=== PATIENT | female | born 1975 | race Caucasian/White ===

== ENCOUNTER 2017-08-23 11:13 | Emergency (ER) | payer MEDICAID ==
[~2017-08-23] VITALS: Ht 154.9 cm; Wt 111.1 kg
[2017-08-23 11:21] VITALS: BP_SYST 164
[2017-08-23] MEDS ORDERED: NACL 0.9% 1,000 ML IV ONE (11:45)
[2017-08-23] MEDS ORDERED: METOCLOPRAMIDE HCL 10 MG/2 ML VIAL IVP ONE (11:45)
[2017-08-23 12:16] LABS: BILIRUBIN,URINE NEGATIVE (NEGATIVE); BLOOD, URINE NEGATIVE (NEGATIVE); CLARITY/URINE CLEAR (CLEAR); COLOR,URINE YELLOW (YELLOW); GLUCOSE,URINE NEGATIVE (NEGATIVE); KETONES,URINE NEGATIVE (NEGATIVE); LEUKOCYTE ESTERASE ,URINE NEGATIVE (NEGATIVE); NITRITE, URINE NEGATIVE (NEGATIVE); PROTEIN URINE NEGATIVE (NEGATIVE); UROBILINOGEN,URINE 0.2 (0.2-1.0)
[2017-08-23] MEDS ORDERED: METOCLOPRAMIDE HCL 10 MG/2 ML VIAL ONE (12:23)
[2017-08-23] MEDS ORDERED: KETOROLAC TROMETHAMINE 30 MG VIAL IVP ONE (12:45)
[2017-08-23] MEDS ORDERED: LORazepam 2 MG/ML VIAL (FOR ER USE) IVP ONE (12:45)
[2017-08-23] MEDS ORDERED: ONDANSETRON HCL 4 MG/2 ML VIAL IVP ONE (12:45)
[2017-08-23 12:50] LABS: BASOPHILS # (AUTO) 0.1 K/uL (0.0-0.2); BASOPHILS % (AUTO) 0.8 % (0.0-2.0); EOSINOPHILS # (AUTO) 0.5 K/uL (0.0-0.4); EOSINOPHILS % (AUTO) 5.2 % (0.0-4.0); HEMATOCRIT 41.1 % (36-48); HEMOGLOBIN 13.6 g/dL (12.0-16.0); LYMPHOCYTES # (AUTO) 1.9 K/uL (1.0-5.5); LYMPHOCYTES % (AUTO) 21.3 % (20.5-51.5); MEAN CORPUSCULAR HEMOGLOBIN 29 pg (27-31); MEAN CORPUSCULAR HGB CONC 33 % (32-36); MEAN CORPUSCULAR VOLUME 87 fL (79.0-98.0); MONOCYTES # (AUTO) 0.5 K/uL (0.0-1.0); MONOCYTES % (AUTO) 5.8 % (1.7-9.3); NEUTROPHILS % (AUTO) 66.9 % (40.0-70.0); PLATELET COUNT (AUTO) 449 K/uL (130-430); RED CELL DISTRIBUTION WIDTH 12.9 % (9.0-15.0)
[2017-08-23 13:03] LABS: CALCIUM 9.2 mg/dL (8.4-11.0); CREATININE 0.7 mg/dL (0.55-1.30); POTASSIUM 3.8 mmol/L (3.5-5.1)
[2017-08-23 13:09] LABS: ALBUMIN 3.5 g/dL (3.4-4.8); TOTAL BILIRUBIN 0.5 mg/dL (0.0-1.0)
[2017-08-23] MEDS ORDERED: HYDROcodone/ACETAMIN 5-325 MG TAB (NORCO/ VICODIN) PO ONE (13:45)
[2017-08-23 14:20] VITALS: BP_SYST 158
== END 2017-08-23 14:20 | disposition home or self-care (01) ==
LOC: SED 11:13
DX: G43.909 Migraine, unspecified, not intractable, without status migrainosus (principal)
CPT/HCPCS: 36415; 70450; 80053; 81003; 81025; 85025; 96361; 96374; 96375; 99285; J1885; J2060; J2405; J2765; J7030

== ENCOUNTER 2018-07-16 05:41 | Emergency (ER) | payer BC, MEDICAID ==
[~2018-07-16] VITALS: Ht 154.9 cm; Wt 108.9 kg
[2018-07-16 05:55] VITALS: BP_SYST 145
--- NOTE | 2018-07-16 06:00 | NUR ---
Pt placed to ER bed 6. Pt c/o lower abdominal pain since 439 this AM. Denies N/V/D, -dysuria, -vaginal discharge.
--- NOTE | 2018-07-16 06:25 | NUR ---
Dr. Fajardo at bedside.
--- NOTE | 2018-07-16 06:52 | NUR ---
Pt to X-ray via W/C.
--- NOTE | 2018-07-16 07:05 | NUR ---
Pt returns from X-ray. No needs verbalized at this time.
--- NOTE | 2018-07-16 07:11 | NUR ---
Pt report given to ALCIRA Cantu.
[2018-07-16 07:54] VITALS: BP_SYST 138
--- NOTE | 2018-07-16 07:56 | NUR ---
Patient given written and verbal discharge instructions and verbalizes understanding. ER MD discussed with patient the results and treatment provided. Patient in stable condition. ID arm band removed. Rx of Senokot given. Patient educated on pain management and to follow up with PMD. Pain Scale 2/10 tolerable for patient . Opportunity for questions provided and answered. Medication side effect fact sheet provided.
== END 2018-07-16 07:56 | disposition home or self-care (01) ==
LOC: SED 05:41
DX: R10.84 Generalized abdominal pain (principal)
CPT/HCPCS: 74021; 81025; 99283

== ENCOUNTER 2018-11-22 21:46 | Emergency (ER) | payer BC ==
[~2018-11-22] VITALS: Ht 154.9 cm; Wt 111.1 kg
[2018-11-22 22:43] VITALS: BP_SYST 132
--- NOTE | 2018-11-22 22:49 | NUR ---
Patient triaged and placed in waiting room. VSS and patient appears in no acute distress at this time. Accompanied by fiance, awaiting available bed, and MD notified of need for MSE.
--- NOTE | 2018-11-23 00:09 | NUR ---
Patient to ER bed 6 to gown for evaluation. Side rails up.
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
--- NOTE | 2018-11-23 00:39 | NUR ---
ER Dr. Patrick at bedside examining patient.
[2018-11-23] MEDS ORDERED: LORazepam 1 MG TABLET PO ONE (00:45)
[2018-11-23] MEDS ORDERED: ACETAMINOPHEN 500 MG TABLET PO ONE (01:00)
[2018-11-23] MEDS ORDERED: NACL 0.9% 1,000 ML IV ONE (01:00)
--- NOTE | 2018-11-23 01:33 | NUR ---
Pt resting comfortably in hospital bed. No acute distress, will continue to monitor.
[2018-11-23] MEDS ORDERED: TEMAZEPAM 15 MG CAPSULE PO ONE (01:45)
[2018-11-23] MEDS ORDERED: TEMAZEPAM 15 MG CAPSULE ONE (01:54)
[2018-11-23 02:42] VITALS: BP_SYST 130
--- NOTE | 2018-11-23 02:42 | NUR ---
Patient given written and verbal discharge instructions and verbalizes understanding. ER MD discussed with patient the results and treatment provided. Patient in stable condition. ID arm band removed. Rx of Ativan given. Patient educated on pain management and to follow up with PMD. Pain Scale 0. Opportunity for questions provided and answered. Medication side effect fact sheet provided.
== END 2018-11-23 02:42 | disposition home or self-care (01) ==
LOC: SED 21:46
DX: F41.9 Anxiety disorder, unspecified (principal); R03.0 Elevated blood-pressure reading, without diagnosis of hypertension
CPT/HCPCS: 99283; 99284

== ENCOUNTER 2021-02-12 04:41 | Emergency (ER) | payer SELFPAY ==
[~2021-02-12] VITALS: Ht 162.6 cm; Wt 111.1 kg
[2021-02-12 05:05] VITALS: BP_SYST 175
[2021-02-12 07:28] LABS: BASOPHILS # (AUTO) 0.1 K/uL (0.0-0.2); BASOPHILS % (AUTO) 0.8 % (0.0-2.0); EOSINOPHILS # (AUTO) 0.1 K/uL (0.0-0.4); EOSINOPHILS % (AUTO) 1.5 % (0.0-4.0); HEMATOCRIT 39.4 % (36-48); HEMOGLOBIN 13.7 g/dL (12.0-16.0); LYMPHOCYTES # (AUTO) 1.4 K/uL (1.0-5.5); LYMPHOCYTES % (AUTO) 16.8 % (20.5-51.5); MEAN CORPUSCULAR HEMOGLOBIN 31 pg (27-31); MEAN CORPUSCULAR HGB CONC 35 % (32-36); MEAN CORPUSCULAR VOLUME 88 fL (79.0-98.0); MONOCYTES # (AUTO) 0.6 K/uL (0.0-1.0); MONOCYTES % (AUTO) 7.4 % (1.7-9.3); NEUTROPHILS # (AUTO) 6.1 K/uL (1.8-7.7); NEUTROPHILS % (AUTO) 73.5 % (40.0-70.0); PLATELET COUNT (AUTO) 365 K/uL (130-430); RED BLOOD CELL COUNT(AUTO) 4.47 MIL/uL (4.2-6.2); RED CELL DISTRIBUTION WIDTH 14.2 % (9.0-15.0); WHITE BLOOD COUNT (AUTO) 8.3 K/uL (4.8-10.8)
[2021-02-12 07:50] LABS: ALBUMIN 3.6 g/dL (3.4-4.8); CREATININE 0.93 mg/dL (0.55-1.30); POTASSIUM 4.1 mmol/L (3.5-5.1); TOTAL BILIRUBIN 0.2 mg/dL (0.0-1.0)
[2021-02-12] MEDS ORDERED: HYDR-3917 PO (08:04)
[2021-02-12] MEDS ORDERED: PRED20TA PO (08:04)
[2021-02-12] MEDS ORDERED: IBUP-1969 PO (08:04)
[2021-02-12] MEDS ORDERED: ZIT250 PO (08:04)
[2021-02-12 08:10] LABS: CALCIUM 8.8 mg/dL (8.4-11.0)
[2021-02-12 08:14] VITALS: BP_SYST 152
[2021-02-12 08:25] LABS: C-REACTIVE PROTEIN QUANT 1.6 mg/dL (0-0.5)
[2021-02-12 08:27] LABS: ERYTHROCYTE SEDIMENTATION RATE 14 MM/HR (0-20)
== END 2021-02-12 08:14 | disposition home or self-care (01) ==
LOC: SED 04:41
DX: J04.0 Acute laryngitis (principal); M25.512 Pain in left shoulder; R94.31 Abnormal electrocardiogram [ECG] [EKG]
CPT/HCPCS: 36415; 70360-TC; 71045; 80053; 84484; 85025; 85651-TC; 86140; 93005; 99285

== ENCOUNTER 2022-05-21 06:09 | Inpatient (IN) | payer BC, OTHER ==
[~2022-05-21] VITALS: Ht 162.6 cm; Wt 111.1 kg
[~2022-05-21 06:09] MED LIST: HYDR-3917 PO; IBUP-1969 PO; PRED20TA PO; ZIT250 PO
[2022-05-21] MEDS ORDERED: ONDANSETRON HCL 4 MG/2 ML VIAL IVP ONE (06:45)
[2022-05-21] MEDS ORDERED: fentaNYL CITRATE/PF 100 MCG/2 ML AMP IVP ONE (06:45)
[2022-05-21] MEDS ORDERED: KETOROLAC TROMETHAMINE 30 MG VIAL IVP ONE (06:45)
[2022-05-21] MEDS ORDERED: NACL 0.9% 1,000 ML IV ONE (06:45)
[2022-05-21 07:12] LABS: BASOPHILS # (AUTO) 0.1 K/uL (0.0-0.2); BASOPHILS % (AUTO) 0.4 % (0.0-2.0); EOSINOPHILS # (AUTO) 0.1 K/uL (0.0-0.4); EOSINOPHILS % (AUTO) 0.4 % (0.0-4.0); HEMATOCRIT 40.2 % (36-48); HEMOGLOBIN 13.8 g/dL (12.0-16.0); LYMPHOCYTES # (AUTO) 1.7 K/uL (1.0-5.5); LYMPHOCYTES % (AUTO) 11.6 % (20.5-51.5); MEAN CORPUSCULAR HEMOGLOBIN 30 pg (27-31); MEAN CORPUSCULAR HGB CONC 34 % (32-36); MEAN CORPUSCULAR VOLUME 88 fL (79.0-98.0); MONOCYTES % (AUTO) 7.2 % (1.7-9.3); NEUTROPHILS # (AUTO) 11.5 K/uL (1.8-7.7); NEUTROPHILS % (AUTO) 80.4 % (40.0-70.0); PLATELET COUNT (AUTO) 315 K/uL (130-430); RED BLOOD CELL COUNT(AUTO) 4.56 MIL/uL (4.2-6.2); WHITE BLOOD COUNT (AUTO) 14.3 K/uL (4.8-10.8)
[2022-05-21 07:21] LABS: CREATININE 0.78 mg/dL (0.55-1.30)
[2022-05-21 07:29] LABS: BILIRUBIN,URINE NEGATIVE (NEGATIVE); BLOOD, URINE NEGATIVE (NEGATIVE); COLOR,URINE YELLOW (YELLOW); GLUCOSE,URINE NEGATIVE (NEGATIVE); KETONES,URINE TRACE (NEGATIVE); LEUKOCYTE ESTERASE ,URINE NEGATIVE (NEGATIVE); NITRITE, URINE NEGATIVE (NEGATIVE); PH,URINE 6.5 (5.0-8.0); PROTEIN URINE NEGATIVE (NEGATIVE); UROBILINOGEN,URINE 0.2 (0.2-1.0)
[2022-05-21 07:32] LABS: CLARITY/URINE SLIGHTLY HAZY (CLEAR)
[2022-05-21 07:35] LABS: ALBUMIN 3.4 g/dL (3.4-4.8); TOTAL BILIRUBIN 0.6 mg/dL (0.0-1.0)
[2022-05-21] MEDS ORDERED: cefTRIAXone 1 GM IVPB PREMIX 50 ML IV ONE (09:30)
[2022-05-21] MEDS ORDERED: metroNIDAZOLE 500 mg/NS 100 ML IV ONE (09:30)
[2022-05-21] MEDS ORDERED: POTASSIUM CHLORIDE 20 MEQ TAB.PRT.SR PO PRN (09:45)
[2022-05-21] MEDS ORDERED: LORazepam 2 MG/ML VIAL IVP PRN (09:45)
[2022-05-21] MEDS ORDERED: ZOLPIDEM TARTRATE 5 MG TABLET PO PRN (09:45)
[2022-05-21] MEDS ORDERED: MUPIROCIN 2% TOPICAL OINTMENT 22 GM NS PRN (09:45)
[2022-05-21] MEDS ORDERED: DOCUSATE SODIUM 100 MG CAPSULE PO PRN (09:45)
[2022-05-21] MEDS ORDERED: ACETAMINOPHEN 325 MG TABLET PO PRN (09:45)
[2022-05-21] MEDS ORDERED: MORPHINE 2 MG/ML INJ. SYRINGE IVP PRN (09:45)
[2022-05-21] MEDS ORDERED: MAGNESIUM SULFATE 50 ML IV PRN (09:45)
[2022-05-21] MEDS ORDERED: ONDANSETRON HCL 4 MG/2 ML VIAL IVP PRN (10:15)
[2022-05-21] MEDS ORDERED: MORPHINE 2 MG/ML INJ. SYRINGE ONE (10:16)
[2022-05-21] MEDS: ONDANSETRON HCL 4 MG/2 ML VIAL IVP PRN ×2 (10:18→13:48)
[2022-05-21] MEDS: MORPHINE 2 MG/ML INJ. SYRINGE IVP PRN ×3 (10:18→18:45)
[2022-05-21 10:34] VITALS: BP_SYST 142
[2022-05-21] MEDS: D5NS 1,000 ML IV SCH ×2 (12:35→17:38)
[2022-05-21] MEDS: metroNIDAZOLE 500 mg/NS 100 ML IV SCH ×2 (13:49→21:01)
[2022-05-21 15:30] VITALS: BP_SYST 135
[2022-05-21 20:11] VITALS: BP_SYST 138
[2022-05-22 00:26] VITALS: BP_SYST 143
[2022-05-22] MEDS: D5NS 1,000 ML IV SCH ×2 (01:49→10:47)
[2022-05-22] MEDS: metroNIDAZOLE 500 mg/NS 100 ML IV SCH (05:44)
[2022-05-22] MEDS: MORPHINE 2 MG/ML INJ. SYRINGE IVP PRN (05:57)
[2022-05-22 07:37] LABS: CALCIUM 8.2 mg/dL (8.4-11.0); CREATININE 0.62 mg/dL (0.55-1.30)
[2022-05-22 07:41] LABS: BASOPHILS % (AUTO) 0.2 % (0.0-2.0); EOSINOPHILS # (AUTO) 0.2 K/uL (0.0-0.4); HEMATOCRIT 34.2 % (36-48); HEMOGLOBIN 11.9 g/dL (12.0-16.0); LYMPHOCYTES # (AUTO) 1.7 K/uL (1.0-5.5); MEAN CORPUSCULAR HEMOGLOBIN 31 pg (27-31); MEAN CORPUSCULAR HGB CONC 35 % (32-36); MEAN CORPUSCULAR VOLUME 88 fL (79.0-98.0); MONOCYTES # (AUTO) 0.8 K/uL (0.0-1.0); NEUTROPHILS # (AUTO) 7.6 K/uL (1.8-7.7); NEUTROPHILS % (AUTO) 73.8 % (40.0-70.0); PLATELET COUNT (AUTO) 282 K/uL (130-430); RED BLOOD CELL COUNT(AUTO) 3.87 MIL/uL (4.2-6.2); RED CELL DISTRIBUTION WIDTH 13.6 % (9.0-15.0)
[2022-05-22 07:59] LABS: WHITE BLOOD COUNT (AUTO) 10.3 K/uL (4.8-10.8)
[2022-05-22 08:00] VITALS: BP_SYST 121
[2022-05-22] MEDS ORDERED: HYDR-3917 PO (10:03)
[2022-05-22] MEDS ORDERED: METR-154 PO (10:03)
[2022-05-22] MEDS ORDERED: CIPR500T5 PO (10:03)
[2022-05-22] MEDS: ONDANSETRON HCL 4 MG/2 ML VIAL IVP PRN (10:19)
[2022-05-22 12:33] VITALS: BP_SYST 121
== END 2022-05-22 13:38 | disposition home or self-care (01) | DRG 872 ==
LOC: SED 06:09 → SMU 09:37
PROVIDERS: ADMIT General Practice; ATTEND General Practice
DX: A41.9 Sepsis, unspecified organism (principal); K57.32 Diverticulitis of large intestine without perforation or abscess without bleeding; Z68.41 Body mass index [BMI] 40.0-44.9, adult; D25.9 Leiomyoma of uterus, unspecified; E66.01 Morbid (severe) obesity due to excess calories; Z20.822 Contact with and (suspected) exposure to COVID-19; K76.0 Fatty (change of) liver, not elsewhere classified; Z79.899 Other long term (current) drug therapy; Z87.820 Personal history of traumatic brain injury; Z80.51 Family history of malignant neoplasm of kidney; Z80.41 Family history of malignant neoplasm of ovary
CPT/HCPCS: 36415; 76376; 80048; 80053; 81003; 83036; 83690; 83735; 85025; 87040; 96365; 96367; 96368; 96375; 99285; J0696; J1885; J1956; J2270; J2405; J3010; J3490; J7030; J7042